=== PATIENT | male | born 1970 | race Caucasian/White ===

== ENCOUNTER 2017-12-02 15:23 | Emergency (ER) | payer OTHER ==
[~2017-12-02] VITALS: Ht 175.3 cm; Wt 111.4 kg
[~2017-12-02 15:23] MED LIST: NAPROSYN500 MG PO; PERCOCET 5/31 TABLET PO; ZOFRAN4 MG PO
[2017-12-02] MEDS ORDERED: PAROXETINE HCL20 MG PO (15:58)
[2017-12-02] MEDS ORDERED: VALSARTAN160 MG PO (15:59)
[2017-12-02] MEDS ORDERED: METFORMIN HCL1000 MG PO ×2 (15:59→16:01)
[2017-12-02] MEDS ORDERED: TRIAMTERENE-HC1 EAC1 PO (15:59)
[2017-12-02] MEDS ORDERED: ATORVASTATIN CA80 MG PO (16:00)
[2017-12-02] MEDS ORDERED: LAMOTRIGINE100 MG PO (16:00)
[2017-12-02 16:20] LABS: APPEARANCE CLEAR ((CLEAR)); BILIRUBIN NEGATIVE; BLOOD NEGATIVE; COLOR COLORLESS ((YELLOW)); GLUCOSE (STRIP) NEGATIVE; KETONES NEGATIVE; LEUKOCYTES NEGATIVE; NITRITE NEGATIVE; PROTEIN (STRIP) NEGATIVE; SPECIFIC GRAVITY 1.003 (1.000-1.030); UROBILINOGEN 0.2 MG/DL (0.2-1.0)
[2017-12-02 16:25] LABS: HEMATOCRIT 41.7 % (38.0-50.0); HEMOGLOBIN 14.6 G/DL (12.5-16.6); MCH 32.2 PG (29.0-34.0); MCV 92.1 FL (86-99); PLATELET COUNT 179 K/uL (156-360); RBC DIS.WIDTH-CV 12.8 % (11.8-14.6); RBC DIS.WIDTH-SD 43.3 % (39-53); RED BLOOD COUNT 4.53 M/uL (4.00-5.50); WHITE BLOOD COUNT 5.9 K/uL (4.1-10.2)
[2017-12-02 16:30] LABS: AMPHETAMINE NEGATIVE (500 ng/mL); BARBITURATES NEGATIVE (200 ng/mL); BENZODIAZEPINES NEGATIVE (150 ng/mL); BUPRENORPHINE NEGATIVE (10 ng/mL); COCAINE NEGATIVE (150 ng/mL); METHADONE NEGATIVE (200 ng/mL); METHAMPHETAMINE NEGATIVE (500 ng/mL); OPIATES (MORPHINE) NEGATIVE (100 ng/mL); OXYCODONE NEGATIVE (100 ng/mL); PHENCYCLIDINE NEGATIVE (25 ng/mL); PROPOXYPHENE NEGATIVE (300 ng/mL); THC CANNABINOIDS NEGATIVE (50 ng/mL); TRICYCLIC ANTIDEPRESSANTS NEGATIVE (300 ng/mL)
[2017-12-02 16:34] LABS: ALBUMIN 4.4 g/dL (3.2-4.8)
[2017-12-02 16:35] LABS: CHLORIDE 107 mEq/L (99-109); POTASSIUM 4.6 mEq/L (3.7-5.4); SODIUM 144 mEq/L (136-147)
[2017-12-02 16:37] LABS: GLUCOSE 81 mg/dL (70-99); TOTAL PROTEIN 7.4 g/dL (6.4-8.3)
[2017-12-02 16:39] LABS: TOTAL BILIRUBIN 0.3 mg/dL (0.0-1.0)
[2017-12-02 16:40] LABS: ALKALINE PHOSPHATASE 67 IU/L (3-129); SERUM ETHYL ALCOHOL 59 mg/dL
[2017-12-02 16:41] LABS: GFR ESTIMATE (CALCULATED) > 59 mL/min/ (58.99-99999)
[2017-12-02 16:42] LABS: AST (GOT) 27 IU/L (2-34); UREA NITROGEN (BUN) 9 mg/dL (9-23)
[2017-12-02 16:44] LABS: ALT (GPT) 31 IU/L (3-49)
[2017-12-02 18:54] VITALS: BP 123/70
== END 2017-12-02 18:58 | disposition home or self-care (01) ==
LOC: EME 15:23
PROVIDERS: Emergency Medicine
DX: G40.909 Epilepsy, unspecified, not intractable, without status epilepticus (principal); I45.10 Unspecified right bundle-branch block; E11.9 Type 2 diabetes mellitus without complications; I10 Essential (primary) hypertension; F41.9 Anxiety disorder, unspecified; F03.90 Unspecified dementia, unspecified severity, without behavioral disturbance, psychotic disturbance, mood disturbance, and anxiety
CPT/HCPCS: 70450; 80053; 81003; 85027; 93005; 99281; 99285; G0480; J2310